=== PATIENT | male | born 1960 | race Caucasian/White ===

== ENCOUNTER 2017-01-30 13:30 | Inpatient (IN) | payer OTHER ==
[~2017-01-30] VITALS: Ht 193 cm; Wt 152.0 kg
[2017-02-01] MEDS ORDERED: ZANT150T2 PO (11:26)
[2017-02-01] MEDS ORDERED: LISI40TA PO (11:26)
[2017-02-01] MEDS ORDERED: AMLO5TAB2 PO (11:26)
[2017-02-01] MEDS ORDERED: FERR325C PO (11:26)
[2017-02-01] MEDS ORDERED: ASPI325T PO (11:26)
[2017-02-02] MEDS ORDERED: LACTATED RINGER'S 1000 ML IV PRN (10:45)
[2017-02-02] MEDS ORDERED: POVIDONE IODINE 5% (ANTISEPSIS KIT) 4 APPLICATIONS EACH NARE PRN (10:45)
[2017-02-02] MEDS ORDERED: INSULIN HUMAN REGULAR 1,000 UNITS/10 ML VIAL SQ PRN (10:45)
[2017-02-02] MEDS ORDERED: METOPROLOL TARTRATE 25 MG TAB PO PRN (10:45)
[2017-02-02] MEDS ORDERED: SODIUM CHLORID 0.9% 500 ML IV PRN (10:45)
[2017-02-02] MEDS ORDERED: CHLORHEXIDINE GLUCONATE 2 % 1 PACK (2 CLOTHS) TOPICAL PRN (10:45)
[2017-02-02] MEDS ORDERED: ceFAZolin 2 GM PREMIX 50 ML IV ONE (11:00)
[2017-02-02] MEDS ORDERED: DEXT 5%-NACL 0.9% 1000 ML INJ 1,000 ML IV SCH (11:00)
[2017-02-02] MEDS ORDERED: METRONIDAZOLE 500 MG/100 ML ISONTONIC SOLN IV ONE (11:00)
[2017-02-02] MEDS ORDERED: GLYCOPYRROLATE 0.2 MG/ML VIAL IV ONE (12:00)
[2017-02-02] MEDS ORDERED: PHENYLEPH/NS 1000 MCG/10 ML SYR IV ONE (12:00)
[2017-02-02] MEDS ORDERED: LACTATED RINGER'S 1000 ML INJ 2,000 ML IV ONE (12:00)
[2017-02-02] MEDS ORDERED: ePHEDrine/NS 25 MG/5 ML SYR IV ONE (12:00)
[2017-02-02] MEDS ORDERED: ROCURONIUM INJ 50 MG/5 ML SYRINGE IV PUSH ONE (12:00)
[2017-02-02] MEDS ORDERED: LIDOCAINE HCL 1% PF 5 ML AMPULE OTHER ONE (12:00)
[2017-02-02] MEDS ORDERED: NS 500 ML (EXCEL BAG) INJ 500 ML IV ONE (12:00)
[2017-02-02] MEDS ORDERED: ONDANSETRON HCL 4 MG/2 ML VIAL IV PUSH ONE (12:00)
[2017-02-02] MEDS ORDERED: DEXAMETHASONE SOD PHOS 4 MG/ML VIAL IV ONE (12:00)
[2017-02-02] MEDS ORDERED: NORMOSOL R INJ 3,000 ML IV ONE (12:00)
[2017-02-02] MEDS ORDERED: MIDAZOLAM HCL 2 MG/2 ML VIAL IV ONE (12:00)
[2017-02-02] MEDS ORDERED: SUCCINYLCHOLINE CHLORIDE 100 MG/5 ML SYRINGE IV PUSH ONE (12:00)
[2017-02-02] MEDS ORDERED: ARTIFICIAL TEARS OPTH OINT 3.5 APPLIC/3.5 GM TUBO EACH EYE ONE (12:00)
[2017-02-02] MEDS ORDERED: VECURONIUM BROMIDE 20 MG VIAL IV ONE (12:00)
[2017-02-02] MEDS ORDERED: PROPOFOL 200 MG/20 ML AMP IV ONE (12:00)
--- NOTE | 2017-02-02 13:36 | EKG ---
Date Performed: 02/02/2017 Time Performed: 10:53:37 PTAGE: 56 years EKG: Sinus rhythm INFERIOR MYOCARDIAL INFARCTION , PROBABLY OLD ABNORMAL ECG NO PREVIOUS TRACING DOCTOR: Frank Murray Interpretating Date/Time 02/02/2017 13:35:35
[2017-02-02] MEDS ORDERED: ACETAMINOPHEN 1000 MG/100 ML 100 ML IV ONE (19:47)
[2017-02-02] MEDS ORDERED: ceFAZolin INJ 1,000 MG VIAL ONE (19:58)
[2017-02-02 21:38] LABS: BLOOD GAS BASE EXCESS -0.1 mmol/L (-2-2); BLOOD GAS CARBOXYHEMOGLOBIN 2.3 % (0-4); BLOOD GAS HCO3 24 mmol/L (22-26); BLOOD GAS METHEMOGLOBIN 1.2 % (0-2); BLOOD GAS O2 HGB SATURATION 96 % (90-100); BLOOD GAS OXYGEN CONTENT 16.3 Vol % (12.0-20.0); BLOOD GAS PCO2 40 mmHg (38-42); BLOOD GAS PO2 180 mmHg (61-120); BLOOD GAS TOTAL HGB 11.8 G/DL (12.0-16.0); CRITICAL VALUE NO; TEMP CORR TO 98.6
[2017-02-02 21:39] LABS: OXYGEN DEVICE OR
[2017-02-02] MEDS ORDERED: SUGAMMADEX SODIUM 200 MG/2 ML VIAL IV PUSH ONE ×2 (23:04)
[2017-02-03] VITALS (15 sets, daily range): BP systolic 101–147; BP diastolic 63–82; PULSE 67–90; RESP 16–17; TEMP 98.4–98.5; O2SAT 95–99
[2017-02-03 02:30] LABS: BLOOD GAS BASE EXCESS -0.9 mmol/L (-2-2); BLOOD GAS CARBOXYHEMOGLOBIN 1.8 % (0-4); BLOOD GAS HCO3 24 mmol/L (22-26); BLOOD GAS METHEMOGLOBIN 1.1 % (0-2); BLOOD GAS O2 HGB SATURATION 91 % (90-100); BLOOD GAS OXYGEN CONTENT 18.7 Vol % (12.0-20.0); BLOOD GAS PCO2 46 mmHg (38-42); BLOOD GAS PO2 78 mmHg (61-120); BLOOD GAS TOTAL HGB 14.6 G/DL (12.0-16.0); CRITICAL VALUE NO; TEMP CORR TO 98.6
[2017-02-03] MEDS ORDERED: ENALAPRILAT 2.5 MG/2 ML VIAL IV PRN (02:30)
[2017-02-03] MEDS ORDERED: ACETAMINOPHEN 325 MG TAB PO PRN (02:30)
[2017-02-03] MEDS: KETOROLAC TROMETHAMINE 30 MG/ML (IVP) VIAL IVP SCH ×4 (02:30→20:44)
[2017-02-03] MEDS ORDERED: ENALAPRILAT 1.25 MG/ML VIAL IV PRN (02:30)
[2017-02-03] MEDS ORDERED: POTASSIUM CHLOR 20 MEQ PREMIX 100 ML IV PRN (02:30)
[2017-02-03] MEDS: D5-NS + KCL 20 MEQ INJ 1,000 ML IV SCH ×4 (02:30→23:19)
[2017-02-03] MEDS ORDERED: NALOXONE HCL 0.4 MG/ML AMP IV PRN (02:30)
[2017-02-03] MEDS ORDERED: MORPHINE SULFATE 30 MG/30 ML PCA IV SCH (02:30)
[2017-02-03] MEDS: SODIUM CHLORIDE 0.9% FLUSH 5 ML FLUSH IVF SCH ×3 (02:30→20:44)
[2017-02-03] MEDS ORDERED: diphenhydrAMINE HCL 50 MG/ML VIAL IV PRN (02:30)
[2017-02-03] MEDS ORDERED: Post-op Orders (for Pharmacy) MISC XX ONE (02:30)
[2017-02-03] MEDS ORDERED: SODIUM CHLORIDE 0.9% FLUSH 5 ML FLUSH IVF PRN (02:30)
[2017-02-03] MEDS ORDERED: POTASSIUM CHLOR 40 MEQ PREMIX 100 ML IV PRN (02:30)
[2017-02-03 02:32] LABS: DRAW SITE ART LINE; FIO2 100 %; OXYGEN DEVICE OR; STAT YES
[2017-02-03] MEDS: metroNIDAZOLE 500 MG INJ 100 ML IV SCH ×3 (03:00→19:53)
[2017-02-03] MEDS ORDERED: PROPOFOL 1000 MG/100 ML INJ 100 ML ONE (03:04)
[2017-02-03] MEDS ORDERED: PHENYLEPHRINE HCL 10 MG/ML VIAL ONE (03:04)
[2017-02-03] MEDS ORDERED: PROPOFOL 1000 MG/100 ML IV PRN (03:30)
[2017-02-03] MEDS ORDERED: MORPHINE SULFATE 4 MG/ML INJ IV PRN (03:30)
[2017-02-03 03:37] LABS: AUTOMATED NEUTROPHIL # 15.5 TH/MM3 (1.8-7.7); BASOPHIL % 0.1 % (0.0-2.0); EOSINOPHIL % 0.1 % (0.0-4.0); HEMATOCRIT 44.2 % (39.0-51.0); LYMPH % 4.1 % (9.0-44.0); LYMPHOCYTE # 0.7 TH/MM3 (1.0-4.8); MEAN CELL VOLUME 84.3 FL (80.0-100.0); MEAN CORPUSCULAR HEMOGLOBIN 27.3 PG (27.0-34.0); MEAN CORPUSCULAR HGB CONC 32.3 % (32.0-36.0); MONO % 2.8 % (0.0-8.0); NEUT % 92.9 % (16.0-70.0); PLATELET COUNT 235 TH/MM3 (150-450); RED BLOOD COUNT 5.24 MIL/MM3 (4.50-5.90); WHITE BLOOD COUNT 16.6 TH/MM3 (4.0-11.0)
[2017-02-03 03:41] LABS: HEMO FLAGS AUTO DIFF
[2017-02-03] MEDS ORDERED: TERBUTALINE INJ 1 MG/ML AMP SQ PRN (03:45)
[2017-02-03] MEDS ORDERED: PHENYLEPHRINE 40 MG in D5W 500 ML IV PRN (03:45)
[2017-02-03 03:56] LABS: POTASSIUM 3.7 MEQ/L (3.5-5.1)
[2017-02-03 03:58] LABS: BLOOD GAS BASE EXCESS -1.5 mmol/L (-2-2); BLOOD GAS CARBOXYHEMOGLOBIN 1.5 % (0-4); BLOOD GAS HCO3 24 mmol/L (22-26); BLOOD GAS METHEMOGLOBIN 1.2 % (0-2); BLOOD GAS O2 HGB SATURATION 87 % (90-100); BLOOD GAS OXYGEN CONTENT 18.2 Vol % (12.0-20.0); BLOOD GAS PCO2 50 mmHg (38-42); BLOOD GAS PO2 64 mmHg (61-120); BLOOD GAS TOTAL HGB 14.9 G/DL (12.0-16.0); TEMP CORR TO 98.6
[2017-02-03 04:00] LABS: CRITICAL VALUE YES
[2017-02-03 04:07] LABS: DRAW SITE ART LINE; FIO2 100 %; OXYGEN DEVICE VENTILATOR; STAT YES
--- NOTE | 2017-02-03 04:13 | RADRPT ---
EXAM DATE/TIME: 02/03/2017 03:18 [facility] COMPARISON: No previous studies available for comparison. INDICATIONS : Low oxygen SATS MEDICAL HISTORY : None. SURGICAL HISTORY : None. ENCOUNTER: Initial ACUITY: 1 day PAIN SCORE: Non-responsive. LOCATION: Bilateral chest FINDINGS: A single view of the chest demonstrates patchy bilateral airspace disease most prominent in the perih ilar and left basilar distribution. Heart size is borderline prominent. Osseous structures are intact . Endotracheal tube with the tip appropriately positioned above the vira. CONCLUSION: 1. Patchy bilateral air space disease, most prominent in the perihilar and medial basilar distributio n. 2. Endotracheal tube appropriately positioned at the vira. 3. Borderline prominent but well compensated heart. Myron Price MD on February 03, 2017 at 4:10 Board Certified Radiologist. This report was verified electronically.
[2017-02-03 04:35] LABS: BANDS 7 % (0-6); NEUTROPHIL # MANUAL DIFF 15.8 TH/MM3 (1.8-7.7); POLYS (SEG NEUTROPHILS) 88 % (16-70); WBC DIFF SAMPLE 100
[2017-02-03 04:36] LABS: OVALOCYTES 1+ (NORMAL); PLATELET ESTIMATE SMEAR NORMAL (NORMAL); PLATELET MORPHOLOGY NORMAL (NORMAL); SCAN/DIFF FINAL DIFF MANUAL
[2017-02-03] MEDS ORDERED: fentaNYL DRIP 250 ML IV PRN (05:15)
[2017-02-03] MEDS ORDERED: MISCELLANEOUS NURSING INFORMATION XX SCH (05:15)
[2017-02-03] MEDS ORDERED: SENNOSIDES 8.6 MG TAB PO PRN (05:15)
[2017-02-03] MEDS ORDERED: BISACODYL 10 MG SUPP RECTAL PRN (05:15)
[2017-02-03] MEDS ORDERED: LACTULOSE SYRUP 20 GM/30 ML CUP PO PRN (05:15)
[2017-02-03] MEDS ORDERED: RESP: ALBUTEROL 2.5 MG/3 ML NEB (PRN) INH (05:15)
[2017-02-03] MEDS ORDERED: ONDANSETRON HCL 4 MG/2 ML VIAL IV PUSH PRN (05:15)
[2017-02-03] MEDS ORDERED: MAGNESIUM HYDROXIDE SUSP 30 ML CUP PO PRN (05:15)
[2017-02-03] MEDS ORDERED: SODIUM CHLORIDE 0.9% FLUSH 10 ML FLUSH IV FLUSH PRN (05:15)
[2017-02-03] MEDS ORDERED: CHLORHEXIDINE GLUCONATE 2 % 1 PACK (2 CLOTHS) TOP PRN (05:15)
--- NOTE | 2017-02-03 05:38 | PD.CONS ---
[facility] Service Critical Care Medicine Consult Requested By Dr. Goss Reason for Consult Postoperative respiratory failure/ventilator management Primary Care Physician Non-Staff History of Present Illness 48-year-old male. Date of admission 02/02/2017. Date of consultation 02/03/2017. Past meclizine includes elevated BMI, anemia, hypertension, ongoing tobaccoism/alcohol use and gastroesophageal reflux disease. Patient is currently orotracheally intubated and no family is available. Information was obtained by reviewing paper chart. Patient is a known history of daily alcohol use and tobacco use. On 01/29, patient had a possible colonoscopy which revealed superficial lung mass FEN at the cecum with multiple biopsies, 2 sessile polyps in the transverse colon and sigmoid colon/polypectomy into colon. In the Descending Colon and Sigmoid Colon. Mild Diverticulosis. Grade 1 Internal Hemorrhoids. These Revealed Tubular Villous Adenoma the Cecum, Tubular Adenoma the Descending Colon with Hyperplastic Polyp. EGD revealed\ hyperplastic squamous mucosa and esophagus with Gastrografin and full inflammation. H. pylori negative. Patient presented to Dr. Goss for minimally invasive robot-assisted ascending colectomy with possible conversion to open surgery if needed. 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 Received 5 L crystalloid. EBL 200 cc. 300 cc urine output. Patient required Rohit-Synephrine drip throughout the case. Unable to be extubated postoperatively remained hypoxic. We are asked to evaluate post procedure. Review of Systems ROS Limitations: Intubated Past Family Social History Allergies: Coded Allergies: No Known Allergies (Unverified , 02/02/17) Past Medical History Tubulovillous adenoma the cecum Internal hemorrhoids Hypertension Elevated BMI Tobaccoism EtOH Gastroesophageal reflux disease Morbid obesity Anemia Diverticulosis Past Surgical History Left total knee arthroplasty Per chart anal surgery however patient denied anesthesia. Reported Medications Iron sulfate 325 mg by mouth 3 times a day Ranitidine 150 mg by mouth twice a day Amlodipine 5 mg by mouth daily Lisinopril 40 mg by mouth daily Aspirin 325 mg by mouth daily Active Ordered Medications Reviewed in EMR Family History Unknown. No records available. Patient currently intubated. No family available Social History 3-4 drinks daily. One pack per day tobacco. No IV drug use. Physical Exam Vital Signs Vital Signs Date Time Temp Pulse Resp B/P (MAP) Pulse Ox O2 Delivery O2 Flow Rate FiO2 02/03/17 05:22 80 90/50 02/03/17 04:51 96 100 02/03/17 04:30 82 14 126/65 (85) 96 Mechanical Ventilator 100 02/03/17 04:15 81 14 125/64 (84) 96 Mechanical Ventilator 100 02/03/17 04:00 82 17 135/67 (89) 94 Mechanical Ventilator 100 02/03/17 03:45 85 20 91/48 (62) 93 Mechanical Ventilator 100 02/03/17 03:30 87 21 108/53 (71) 92 Mechanical Ventilator 100 02/03/17 03:15 84 12 96/51 (66) 91 Mechanical Ventilator 100 02/03/17 03:04 80 90/50 02/03/17 03:00 100 02/03/17 03:00 98.0 84 12 90/50 (63) 90 Mechanical Ventilator 100 02/02/17 15:00 81 16 134/76 (95) 97 02/02/17 10:27 98.9 86 18 154/97 (116) 97 Physical Exam GENERAL: This is a 48-year-old male, critically ill currently orotracheally intubated. SKIN: Warm and dry. Chronic venous stasis bilateral lower extremities HEAD: Atraumatic. Normocephalic. EYES: Pupils equal and round around 2 mm bilaterally and reactive. No scleral icterus. No injection or drainage. ENT: No nasal bleeding or discharge. Mucous membranes pink and moist. NG tube in right nares NECK: Trachea midline. No JVD. Obese. CARDIOVASCULAR: Regular rate and rhythm. S1, S2. No S4. No murmur RESPIRATORY: Diminished breath sounds throughout. No wheezing or rhonchi appreciated. GASTROINTESTINAL: Abdomen obese. Nontender. Trochars to the right lower quadrant 1 right of umbilicus. Steri-Strips over suprapubic incision site with some bloody drainage covered with foam tape MUSCULOSKELETAL: Extremities with trace pitting edema bilateral lower x-rays with chronic venous stasis NEUROLOGICAL: Cranial nerves II through XII grossly intact. Strength evaluated by movement in all 4 extremities spontaneously to stimulation. Positive gag. Positive corneal reflex Laboratory Laboratory Tests Test 02/02/17 21:10 02/03/17 02:10 02/03/17 03:16 02/03/17 03:25 Blood Gas Puncture Site DRAWN IN OR ART LINE ART LINE Blood Gas Patient Temperature 98.6 98.6 98.6 Blood Gas HCO3 24 24 24 Blood Gas Base Excess -0.1 -0.9 -1.5 Blood Gas Oxygen Saturation 96 91 87 Arterial Blood pH 7.40 7.34 7.30 Arterial Blood Partial Pressure CO2 40 46 50 Arterial Blood Partial Pressure O2 180 78 64 Arterial Blood Oxygen Content 16.3 18.7 18.2 Arterial Blood Carboxyhemoglobin 2.3 1.8 1.5 Arterial Blood Methemoglobin 1.2 1.1 1.2 Blood Gas Hemoglobin 11.8 14.6 14.9 Oxygen Delivery Device OR OR VENTILATOR Blood Gas Inspired Oxygen 100 100 White Blood Count 16.6 Red Blood Count 5.24 Hemoglobin 14.3 Hematocrit 44.2 Mean Corpuscular Volume 84.3 Mean Corpuscular Hemoglobin 27.3 Mean Corpuscular Hemoglobin Concent 32.3 Red Cell Distribution Width 21.0 Platelet Count 235 Mean Platelet Volume 8.4 Neutrophils (%) (Auto) 92.9 Lymphocytes (%) (Auto) 4.1 Monocytes (%) (Auto) 2.8 Eosinophils (%) (Auto) 0.1 Basophils (%) (Auto) 0.1 Neutrophils # (Auto) 15.5 Lymphocytes # (Auto) 0.7 Monocytes # (Auto) 0.5 Eosinophils # (Auto) 0.0 Basophils # (Auto) 0.0 CBC Comment AUTO DIFF Differential Total Cells Counted 100 Neutrophils % (Manual) 88 Band Neutrophils % 7 Lymphocytes % 4 Monocytes % 1 Neutrophils # (Manual) 15.8 Differential Comment FINAL DIFF MANUAL Platelet Estimate NORMAL Platelet Morphology Comment NORMAL Ovalocytes 1+ Blood Urea Nitrogen 14 Creatinine 1.32 Random Glucose 182 Calcium Level 7.5 Sodium Level 139 Potassium Level 3.7 Chloride Level 103 Carbon Dioxide Level 27.0 Anion Gap 9 Estimat Glomerular Filtration Rate 56 Test 02/03/17 04:53 Result Diagram: 02/03/17 0316 02/03/17 0316 Imaging Last Impressions Chest X-Ray 02/03/17 0000 Signed Impressions: Service Date/Time: Friday, February 03, 2017 03:18 - CONCLUSION: 1. Patchy bilateral air space disease, most prominent in the perihilar and medial basilar distribution. 2. Endotracheal tube appropriately positioned at the vira. 3. Borderline prominent but well compensated heart. Myron Price MD Assessment and Plan Assessment and Plan Neuro/Psych: EtOH Thiamine, folate and multivitamin daily 3 days. Monitor for DTs Currently on propofol/fentanyl drips for sedation/analgesia while intubated Goal of RA SS -2 Daily sedation vacation Morphine CORPORATE ADMINISTRATIVE ASSISTANT/Caruthers written per colon surgery prior to knowledge patient remained intubated postop. Likely can discontinue until clinically indicated CV: Hypotension possibly sedation induced History of hypertension Will hold lisinopril 40 mg by mouth daily and amlodipine 5 mg by mouth daily for hypertension light of hypotension Currently on low-dose Rohit-Synephrine at 40 mg per minute. Likely can wean off. Currently on D5 normal saline with 20 mEq KCl 150 cc an hour Resp: Postoperative respiratory failure Ongoing tobaccoism [facility] 16/650/1.2/ Ventilator bundle Albuterol/ipratropium aerosols every 4 hours with albuterol aerosols every 2 hours. 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 Right NG tube LIWS Pantoprazole for GI prophylaxis : Dewitt catheter for accurate I's and O's in a critically ill patient Endo: Hyperglycemia Sliding-scale insulin to maintain euglycemia per colorectal surgery Renal: Elevated creatinine Unknown baseline. No prior laboratories. Avoid nephrotoxic drugs Heme: Leukocytosis Monitor CBC daily. Follow trends. ID: Postoperative antibiotics with cefazolin and metronidazole per colorectal surgery. FEN: Replace electrolytes as clinically indicated per ICU electrolyte protocol MSK: Access- right radial arterial line placed in OR. Peripheral IVs. The central line if indicated Prophylaxis - GI - famotidine - DVT - SCD/pharmacological prophylaxis heparin sq Critical care time 30 minutes Code Status Full code Discussed Condition With [employer]. Care plan discussed and all questions answered. No family available. Julio Cesar Freeman MD Feb 03, 2017 05:38
[2017-02-03] MEDS ORDERED: PCA - TOTAL MG MORPHINE DELIVERED PER SHIFT SCH (06:00)
[2017-02-03] MEDS: PROPOFOL 1000 MG/100 ML INJ 100 ML IV PRN ×3 (06:09→20:45)
[2017-02-03 06:33] LABS: BLOOD GAS BASE EXCESS 1.9 mmol/L (-2-2); BLOOD GAS HCO3 27 mmol/L (22-26); BLOOD GAS O2 HGB SATURATION 91 % (90-100); BLOOD GAS OXYGEN CONTENT 18.9 Vol % (12.0-20.0); BLOOD GAS PCO2 46 mmHg (38-42); BLOOD GAS PO2 70 mmHg (61-120); BLOOD GAS TOTAL HGB 14.7 G/DL (12.0-16.0); CRITICAL VALUE NO; OXYGEN DEVICE VENTILATOR; TEMP CORR TO 98.6
[2017-02-03 06:34] LABS: DRAW SITE ART LINE; FIO2 100 %; STAT NO; VENT SETTINGS PRVC /AC /
[2017-02-03] MEDS: CHLORHEXIDINE 0.12% (ORAL KIT) 15 ML CUP MT SCH ×2 (08:00→19:55)
[2017-02-03] MEDS: RESP: ALBUTEROL 2.5 MG/IPRATROPIUM 0.5 MG NEB (SCH) INH ×4 (08:41→19:48)
[2017-02-03] MEDS: ARTIFICIAL TEARS OPTH SOLN 15 ML BTL EACH EYE SCH ×2 (09:00→19:56)
[2017-02-03] MEDS ORDERED: amLODIPine BESYLATE 5 MG TAB PO SCH (09:00)
[2017-02-03] MEDS ORDERED: SODIUM CHLORIDE 0.9% FLUSH 10 ML FLUSH IV FLUSH SCH (09:00)
[2017-02-03] MEDS ORDERED: PANTOPRAZOLE SODIUM 40 MG VIAL IV PUSH SCH (09:00)
[2017-02-03] MEDS ORDERED: LISINOPRIL 20 MG TAB PO SCH (09:00)
[2017-02-03] MEDS: FOLIC ACID 1 MG TAB PO SCH (09:57)
[2017-02-03] MEDS: MULTIVITAMIN TAB PO SCH (09:57)
[2017-02-03] MEDS: DOCUSATE SODIUM 50 MG/SENNA 8.6 MG TAB PO SCH ×2 (09:57→20:45)
[2017-02-03] MEDS: PANTOPRAZOLE SODIUM 40 MG VIAL IVP SCH (09:58)
[2017-02-03] MEDS: THIAMINE INJ 100 MG in SODIUM CHLORIDE 0.9% INJ 100 ML IV SCH (09:58)
[2017-02-03 11:03] LABS: BLOOD GAS BASE EXCESS 0.1 mmol/L (-2-2); BLOOD GAS CARBOXYHEMOGLOBIN 0.9 % (0-4); BLOOD GAS HCO3 25 mmol/L (22-26); BLOOD GAS METHEMOGLOBIN 0.9 % (0-2); BLOOD GAS O2 HGB SATURATION 92 % (90-100); BLOOD GAS OXYGEN CONTENT 18.4 Vol % (12.0-20.0); BLOOD GAS PCO2 42 mmHg (38-42); BLOOD GAS PO2 70 mmHg (61-120); BLOOD GAS TOTAL HGB 14.2 G/DL (12.0-16.0); CRITICAL VALUE NO; OXYGEN DEVICE VENTILATOR; TEMP CORR TO 98.6
[2017-02-03 11:06] LABS: DRAW SITE ART LINE; FIO2 80 %; STAT NO; VENT SETTINGS PRVC/AC
[2017-02-03] MEDS: RESP: BUDESONIDE 0.5 MG/2 ML NEB NEB SCH ×2 (11:23→19:48)
--- NOTE | 2017-02-03 11:41 | HHI.CCPN ---
Subjective Remarks/Hospital Course 48-year-old male. Date of admission 02/02/2017. Date of consultation 02/03/2017. Past meclizine includes elevated BMI, anemia, hypertension, ongoing tobaccoism/alcohol use and gastroesophageal reflux disease. Patient is currently orotracheally intubated and no family is available. Information was obtained by reviewing paper chart. Patient is a known history of daily alcohol use and tobacco use. On 01/29, patient had a possible colonoscopy which revealed superficial lung mass FEN at the cecum with multiple biopsies, 2 sessile polyps in the transverse colon and sigmoid colon/polypectomy into colon. In the Descending Colon and Sigmoid Colon. Mild Diverticulosis. Grade 1 Internal Hemorrhoids. These Revealed Tubular Villous Adenoma the Cecum, Tubular Adenoma the Descending Colon with Hyperplastic Polyp. EGD revealed\ hyperplastic squamous mucosa and esophagus with Gastrografin and full inflammation. H. pylori negative. Patient presented to Dr. Goss for minimally invasive robot-assisted ascending colectomy with possible conversion to open surgery if needed. 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 Received 5 L crystalloid. EBL 200 cc. 300 cc urine output. Patient required Rohit-Synephrine drip throughout the case. Unable to be extubated postoperatively remained hypoxic. We are asked to evaluate post procedure. 02/03: Oxygen diffusion much impaired - may simply be shunting through dense infiltrates. Urine cloudy, send UA. Well perfused. Objective Vital Signs Date Time Temp Pulse Resp B/P (MAP) Pulse Ox O2 Delivery O2 Flow Rate FiO2 02/03/17 08:41 95 80 02/03/17 06:00 84 02/03/17 05:22 90/50 02/03/17 04:30 14 Mechanical Ventilator 02/03/17 03:00 98.0 Intake and Output 02/03/17 02/03/17 02/04/17 08:00 16:00 00:00 Intake Total 5544 ml Output Total 750 ml Balance 4794 ml Result Diagram: 02/03/176 02/03/176 Other Results Laboratory Tests Test 02/02/17 21:10 02/03/17 02:10 02/03/17 03:25 02/03/17 04:53 Blood Gas Puncture Site DRAWN IN OR ART LINE ART LINE ART LINE Blood Gas Patient Temperature 98.6 98.6 98.6 98.6 Blood Gas HCO3 24 mmol/L (22-26) 24 mmol/L (22-26) 24 mmol/L (22-26) 27 mmol/L (22-26) Blood Gas Base Excess -0.1 mmol/L (-2-2) -0.9 mmol/L (-2-2) -1.5 mmol/L (-2-2) 1.9 mmol/L (-2-2) Blood Gas Oxygen Saturation 96 % (90-100) 91 % (90-100) 87 % (90-100) 91 % ( 90-100) Arterial Blood pH 7.40 (7.380-7.420) 7.34 (7.380-7.420) 7.30 (7.380-7.420) 7.38 (7.380-7.420) Arterial Blood Partial Pressure CO2 40 mmHg (38-42) 46 mmHg (38-42) 50 mmHg (38-42) 46 mmHg (38-42) Arterial Blood Partial Pressure O2 180 mmHg (61-120) 78 mmHg (61-120) 64 mmHg (61-120) 70 mmHg (61-120) Arterial Blood Oxygen Content 16.3 Vol % (12.0-20.0) 18.7 Vol % (12.0-20.0) 18.2 Vol % (12.0-20.0) 18.9 Vol % (12.0-20.0) Arterial Blood Carboxyhemoglobin 2.3 % (0-4) 1.8 % (0-4) 1.5 % (0-4) 1.0 % (0-4) Arterial Blood Methemoglobin 1.2 % (0-2) 1.1 % (0-2) 1.2 % (0-2) 1.0 % (0-2) Blood Gas Hemoglobin 11.8 G/DL (12.0-16.0) 14.6 G/DL (12.0-16.0) 14.9 G/DL (12.0-16.0) 14.7 G/DL (12.0-16.0) Oxygen Delivery Device OR OR VENTILATOR VENTILATOR Blood Gas Inspired Oxygen 100 % 100 % 100 % Blood Gas Ventilator Setting [facility] /AC / Test 02/03/17 10:47 Blood Gas Puncture Site ART LINE Blood Gas Patient Temperature 98.6 Blood Gas HCO3 25 mmol/L (22-26) Blood Gas Base Excess 0.1 mmol/L (-2-2) Blood Gas Oxygen Saturation 92 % (90-100) Arterial Blood pH 7.38 (7.380-7.420) Arterial Blood Partial Pressure CO2 42 mmHg (38-42) Arterial Blood Partial Pressure O2 70 mmHg (61-120) Arterial Blood Oxygen Content 18.4 Vol % (12.0-20.0) Arterial Blood Carboxyhemoglobin 0.9 % (0-4) Arterial Blood Methemoglobin 0.9 % (0-2) Blood Gas Hemoglobin 14.2 G/DL (12.0-16.0) Oxygen Delivery Device VENTILATOR Blood Gas Ventilator Setting [facility]/AC Blood Gas Inspired Oxygen 80 % Imaging Last Impressions Chest X-Ray 02/03/17 0000 Signed Impressions: Service Date/Time: Sunday, February 03, 2017 03:18 - CONCLUSION: 1. Patchy bilateral air space disease, most prominent in the perihilar and medial basilar distribution. 2. Endotracheal tube appropriately positioned at the vira. 3. Borderline prominent but well compensated heart. Myron Price MD Objective Remarks GENERAL: This is a 48-year-old male, critically ill currently orotracheally intubated. SKIN: Warm and dry. Chronic venous stasis bilateral lower extremities HEAD: Atraumatic. Normocephalic. EYES: Pupils equal and round around 2 mm bilaterally and reactive. No scleral icterus. No injection or drainage. ENT: No nasal bleeding or discharge. Mucous membranes pink and moist. NG tube in right nares NECK: Trachea midline. Orally intubated. CARDIOVASCULAR: Regular rate and rhythm. S1, S2. No S4. No murmur, no JVD. RESPIRATORY: Diminished breath sounds throughout. No wheezing or rhonchi appreciated. Good juan m air movement. GASTROINTESTINAL: Abdomen obese. Nontender. Trochar sites to the right lower quadrant 1 right of umbilicus. MUSCULOSKELETAL: Extremities with trace pitting edema bilateral lower x-rays with chronic venous stasis NEUROLOGICAL: Cranial nerves II through XII grossly intact. Strength evaluated by movement in all 4 extremities spontaneously to stimulation. Positive gag. A/P Assessment and Plan Neuro/Psych: EtOH Thiamine, folate and multivitamin daily 3 days. Monitor for DTs Currently on propofol/fentanyl drips for sedation/analgesia while intubated Goal of RA SS -2 Daily sedation vacation Morphine METAL RECLAMATION KETTLE TENDER/[place] written per colon surgery prior to knowledge patient remained intubated postop. Likely can discontinue until clinically indicated CV: Hypotension possibly sedation induced History of hypertension Will hold lisinopril 40 mg by mouth daily and amlodipine 5 mg by mouth daily for hypertension light of hypotension Currently on low-dose Rohit-Synephrine at 40 mg per minute. Likely can wean off. Currently on D5 normal saline with 20 mEq KCl 150 cc an hour Resp: Postoperative respiratory failure Ongoing tobaccoism [facility] [address]/1.2/ Ventilator bundle Albuterol/ipratropium aerosols every 4 hours with albuterol aerosols every 2 hours. 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 Right NG tube LIWS Pantoprazole for GI prophylaxis : Dewitt catheter for accurate I's and O's in a critically ill patient Endo: Hyperglycemia Sliding-scale insulin to maintain euglycemia per colorectal surgery Renal: Elevated creatinine Unknown baseline. No prior laboratories. Avoid nephrotoxic drugs Heme: Leukocytosis Monitor CBC daily. Follow trends. ID: Postoperative antibiotics with cefazolin and metronidazole per colorectal surgery. FEN: Replace electrolytes as clinically indicated per ICU electrolyte protocol MSK: Access- right radial arterial line placed in OR. Peripheral IVs. The central line if indicated Prophylaxis - GI - famotidine - DVT - SCD/pharmacological prophylaxis heparin sq Overall impression: Remains critically ill. Appears to have an element of chronic heart failure and deep venous insufficiency. Areas of consolidation on CXR will probably re-expand nicely on ventilator. Watch carefully. Critical Care 48 mins Joselito Diaz MD Feb 03, 2017 11:41
--- NOTE | 2017-02-03 11:54 | HHI.PR ---
Subjective Remarks Pt more awake. Remains on vent. Appreciate critical care help. Objective Vital Signs Date Time Temp Pulse Resp B/P (MAP) Pulse Ox O2 Delivery O2 Flow Rate FiO2 02/03/17 08:41 95 80 02/03/17 06:00 84 02/03/17 05:22 80 90/50 02/03/17 04:51 96 100 02/03/17 04:37 100 02/03/17 04:30 82 14 126/65 (85) 96 Mechanical Ventilator 100 02/03/17 04:15 81 14 125/64 (84) 96 Mechanical Ventilator 100 02/03/17 04:00 82 17 135/67 (89) 94 Mechanical Ventilator 100 02/03/17 03:59 100 02/03/17 03:45 85 20 91/48 (62) 93 Mechanical Ventilator 100 02/03/17 03:30 87 21 108/53 (71) 92 Mechanical Ventilator 100 02/03/17 03:15 84 12 96/51 (66) 91 Mechanical Ventilator 100 02/03/17 03:04 80 90/50 02/03/17 03:00 100 02/03/17 03:00 98.0 84 12 90/50 (63) 90 Mechanical Ventilator 100 02/02/17 15:00 81 16 134/76 (95) 97 I/O 02/02/17 02/02/17 02/02/17 02/03/17 02/03/17 02/03/17 07:00 15:00 23:00 07:00 15:00 23:00 Intake Total 5544 ml Output Total 750 ml Balance 4794 ml Intake IV Total 5544 ml Output Urine Total 450 ml Gastric Drainage Total 100 ml Estimated Blood Loss 200 ml # Voids 1 Result Diagram: 02/03/1731502/03/17315 Objective Remarks VS-S Abd: obese,soft,non distended. Better urine output. Assessment and Plan Assessment and Plan POD#1. Remains on vent Continue IVs, Wean vent. Sean Meza MD Feb 03, 2017 11:54
[2017-02-03] MEDS ORDERED: STERILE WATER FOR INJECTION 20 ML VIAL IV ONE (12:00)
[2017-02-03] MEDS ORDERED: LACTATED RINGER'S 1000 ML INJ 1,000 ML IV ONE (12:00)
[2017-02-03] MEDS ORDERED: PROPOFOL 200 MG/20 ML AMP IV ONE (12:00)
--- NOTE | 2017-02-03 12:33 | ECHRPT ---
Indication: EF in assessment of CHF CONCLUSIONS Normal left ventricular size. Mild concentric left ventricular hypertrophy. The left ventricular systolic function is grossly normal on limited imaging. The interatrial septum not well visualized. Trace mitral valve regurgitation. The aortic valve is not well visualized. No aortic valve stenosis. There is trace tricuspid valve regurgitation. The pulmonary valve is not well visualized. The inferior vena cava was not well visualized. BP: 90 / 50 HR: Rhythm: Sinus MEASUREMENTS (Male / Female) Normal Values Technical Quality:Poor 2D ECHO LV Diastolic Diameter PLAX 5.2 cm 4.2 - 5.9 / 3.9 - 5.3 cm LV Systolic Diameter PLAX 3.3 cm IVS Diastolic Thickness 1.1 cm 0.6 - 1.0 / 0.6 - 0.9 cm LVPW Diastolic Thickness 1.1 cm 0.6 - 1.0 / 0.6 - 0.9 cm LV Relative Wall Thickness 0.4 LVOT Diameter 2.0 cm Aortic Root Diameter 3.1 cm LA Systolic Diameter LX 3.3 cm 3.0 - 4.0 / 2.7 - 3.8 cm M-MODE AV Cusp Separation MM 2.0 cm DOPPLER AV Peak Velocity 225.0 cm/s AV Peak Gradient 20.3 mmHg AV Mean Gradient 8.0 mmHg AV Velocity Time Integral 32.5 cm LVOT Peak Velocity 156.0 cm/s LVOT Peak Gradient 9.7 mmHg LVOT Velocity Time Integral 22.8 cm AV Area Cont Eq vti 2.2 cm AV Area Cont Eq pk 2.2 cm Mitral E Point Velocity 90.7 cm/s Mitral A Point Velocity 99.3 cm/s Mitral E to A Ratio 0.9 LV E' Lateral Velocity 8.5 cm/s Mitral E to LV E' Lateral Ratio 10.7 LV E' Septal Velocity 10.1 cm/s Mitral E to LV E' Septal Ratio 9.0 TR Peak Velocity 303.0 cm/s TR Peak Gradient 36.7 mmHg PV Peak Velocity 92.5 cm/s PV Peak Gradient 3.4 mmHg FINDINGS LEFT VENTRICLE Normal left ventricular size. Mild concentric left ventricular hypertrophy. The left ventricular systolic function is grossly normal on limited imaging. RIGHT VENTRICLE Normal right ventricular size and systolic function. LEFT ATRIUM The left atrial size is normal. RIGHT ATRIUM The right atrial size is normal. ATRIAL SEPTUM The interatrial septum not well visualized. AORTA The aortic root and proximal ascending aorta are normal in size on limited imaging. MITRAL VALVE Structurally normal mitral valve. Trace mitral valve regurgitation. AORTIC VALVE The aortic valve is not well visualized. No aortic valve stenosis. TRICUSPID VALVE Structurally normal tricuspid valve. There is trace tricuspid valve regurgitation. PULMONARY VALVE The pulmonary valve is not well visualized. VESSELS The inferior vena cava was not well visualized. PERICARDIUM No pericardial effusion. Frank Murray MD (Electronically Signed) Final Date:03 February 2017 12:32
[2017-02-03] MEDS: ACETAMINOPHEN/HYDROcodone 325 MG/5 MG TAB PO PRN (14:21)
[2017-02-03] MEDS: HEPARIN SODIUM - SQ 10,000 UNITS/ML VIAL SQ SCH (20:43)
[2017-02-04] VITALS (19 sets, daily range): BP systolic 98–144; BP diastolic 50–77; PULSE 50–90; RESP 7–21; TEMP 97.4–98.5; O2SAT 92–100
[2017-02-04] MEDS: RESP: ALBUTEROL 2.5 MG/IPRATROPIUM 0.5 MG NEB (SCH) INH ×6 (00:22→19:52)
[2017-02-04] MEDS: KETOROLAC TROMETHAMINE 30 MG/ML (IVP) VIAL IVP SCH ×2 (02:33→10:03)
[2017-02-04] MEDS: PROPOFOL 1000 MG/100 ML INJ 100 ML IV PRN (03:04)
[2017-02-04] MEDS: CHLORHEXIDINE GLUCONATE 2 % 1 PACK (2 CLOTHS) TOP SCH (03:44)
[2017-02-04 04:34] LABS: AUTOMATED NEUTROPHIL # 8.5 TH/MM3 (1.8-7.7); BASOPHIL % 0.3 % (0.0-2.0); EOSINOPHIL % 0.4 % (0.0-4.0); HEMATOCRIT 38.6 % (39.0-51.0); LYMPH % 13.8 % (9.0-44.0); LYMPHOCYTE # 1.6 TH/MM3 (1.0-4.8); MEAN CELL VOLUME 85.1 FL (80.0-100.0); MEAN CORPUSCULAR HEMOGLOBIN 28.6 PG (27.0-34.0); MEAN CORPUSCULAR HGB CONC 33.6 % (32.0-36.0); MONO % 10.1 % (0.0-8.0); NEUT % 75.4 % (16.0-70.0); PLATELET COUNT 176 TH/MM3 (150-450); RED BLOOD COUNT 4.54 MIL/MM3 (4.50-5.90); WHITE BLOOD COUNT 11.3 TH/MM3 (4.0-11.0)
[2017-02-04 04:35] LABS: BLOOD GAS BASE EXCESS 2.6 mmol/L (-2-2); BLOOD GAS CARBOXYHEMOGLOBIN 0.9 % (0-4); BLOOD GAS HCO3 27 mmol/L (22-26); BLOOD GAS METHEMOGLOBIN 0.8 % (0-2); BLOOD GAS O2 HGB SATURATION 93 % (90-100); BLOOD GAS OXYGEN CONTENT 17.4 Vol % (12.0-20.0); BLOOD GAS PCO2 47 mmHg (38-42); BLOOD GAS PO2 75 mmHg (61-120); BLOOD GAS TOTAL HGB 13.3 G/DL (12.0-16.0); CRITICAL VALUE NO; OXYGEN DEVICE VENTILATOR; TEMP CORR TO 98.6
[2017-02-04 04:36] LABS: DRAW SITE ART LINE; FIO2 40 %; STAT NO; ULNAR PULSE PRESENT; VENT SETTINGS PRVC/AC
[2017-02-04 04:47] LABS: HEMO FLAGS AUTO DIFF
[2017-02-04 04:48] LABS: MAGNESIUM 2.3 MG/DL (1.5-2.5); POTASSIUM 3.9 MEQ/L (3.5-5.1)
--- NOTE | 2017-02-04 05:34 | RADRPT ---
EXAM DATE/TIME: 02/04/2017 03:53 [facility] COMPARISON: CHEST SINGLE AP, February 03, 2017, 3:18. INDICATIONS : Respiratory failure, hypoxemia MEDICAL HISTORY : None. SURGICAL HISTORY : None. ENCOUNTER: Subsequent ACUITY: 2 days PAIN SCORE: Non-responsive. LOCATION: Bilateral chest FINDINGS: A single view of the chest demonstrates persistent left perihilar and left basilar air space processe s but I do believe that she'll some minimal infiltrate. This may be partially due to the limited insp iratory effort. Right lung remains clear. No effusions. Heart size is borderline. Endotracheal tube i s unchanged in position a nasogastric tube traversing the GE junction and extending off the inferior aspect of the image. CONCLUSION: 1. Left perihilar and medial left basilar airspace infiltrates may show some interval improvement fro m prior. Right lung remains clear. 2. Borderline prominent but well compensated heart. 3. Endotracheal tube remains appropriately positioned above the vira. Myron Price MD on February 04, 2017 at 5:31 Board Certified Radiologist. This report was verified electronically.
[2017-02-04] MEDS: D5-NS + KCL 20 MEQ INJ 1,000 ML IV SCH ×3 (05:43→19:54)
[2017-02-04] MEDS: RESP: BUDESONIDE 0.5 MG/2 ML NEB NEB SCH ×2 (08:07→19:52)
[2017-02-04 08:38] LABS: SCAN/DIFF AUTO DIFF CONFIRMED
[2017-02-04] MEDS: ARTIFICIAL TEARS OPTH SOLN 15 ML BTL EACH EYE SCH ×3 (09:00→17:37)
[2017-02-04] MEDS: SODIUM CHLORIDE 0.9% FLUSH 5 ML FLUSH IVF SCH ×2 (09:00→19:54)
--- NOTE | 2017-02-04 09:36 | HHI.CCPN ---
Subjective Remarks/Hospital Course 48-year-old male. Date of admission 02/02/2017. Date of consultation 02/03/2017. Past meclizine includes elevated BMI, anemia, hypertension, ongoing tobaccoism/alcohol use and gastroesophageal reflux disease. Patient is currently orotracheally intubated and no family is available. Information was obtained by reviewing paper chart. Patient is a known history of daily alcohol use and tobacco use. On 01/29, patient had a possible colonoscopy which revealed superficial lung mass FEN at the cecum with multiple biopsies, 2 sessile polyps in the transverse colon and sigmoid colon/polypectomy into colon. In the Descending Colon and Sigmoid Colon. Mild Diverticulosis. Grade 1 Internal Hemorrhoids. These Revealed Tubular Villous Adenoma the Cecum, Tubular Adenoma the Descending Colon with Hyperplastic Polyp. EGD revealed\ hyperplastic squamous mucosa and esophagus with Gastrografin and full inflammation. H. pylori negative. Patient presented to Dr. Goss for minimally invasive robot-assisted ascending colectomy with possible conversion to open surgery if needed. 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 Received 5 L crystalloid. EBL 200 cc. 300 cc urine output. Patient required Rohit-Synephrine drip throughout the case. Unable to be extubated postoperatively remained hypoxic. We are asked to evaluate post procedure. 02/03: Oxygen diffusion much impaired - may simply be shunting through dense infiltrates. Urine cloudy, send UA. Well perfused. 02/04: Much improved oxygenation. Renal function back to normal. Will try to extubate today. Objective Vital Signs Date Time Temp Pulse Resp B/P (MAP) Pulse Ox O2 Delivery O2 Flow Rate FiO2 02/04/17 08:07 98 35 02/04/17 06:00 55 02/04/17 04:00 98.4 18 112/75 (87) 140/76 (97) 02/03/17 19:00 Mechanical Ventilator Intake and Output 02/04/17 02/04/17 02/05/17 08:00 16:00 00:00 Intake Total 1100 ml Output Total 575 ml Balance 525 ml Result Diagram: 02/04/17 0402 02/04/17 0402 Other Results Laboratory Tests Test 02/03/17 10:47 02/04/17 04:19 Blood Gas Puncture Site ART LINE ART LINE Blood Gas Patient Temperature 98.6 98.6 Blood Gas HCO3 25 mmol/L (22-26) 27 mmol/L (22-26) Blood Gas Base Excess 0.1 mmol/L (-2-2) 2.6 mmol/L (-2-2) Blood Gas Oxygen Saturation 92 % (90-100) 93 % (90-100) Arterial Blood pH 7.38 (7.380-7.420) 7.38 (7.380-7.420) Arterial Blood Partial Pressure CO2 42 mmHg (38-42) 47 mmHg (38-42) Arterial Blood Partial Pressure O2 70 mmHg (61-120) 75 mmHg (61-120) Arterial Blood Oxygen Content 18.4 Vol % (12.0-20.0) 17.4 Vol % (12.0-20.0) Arterial Blood Carboxyhemoglobin 0.9 % (0-4) 0.9 % (0-4) Arterial Blood Methemoglobin 0.9 % (0-2) 0.8 % (0-2) Blood Gas Hemoglobin 14.2 G/DL (12.0-16.0) 13.3 G/DL (12.0-16.0) Oxygen Delivery Device VENTILATOR VENTILATOR Blood Gas Ventilator Setting PRVC/AC PRVC/AC Blood Gas Inspired Oxygen 80 % 40 % Imaging Last Impressions Chest X-Ray 02/03/17 0000 Signed Impressions: Service Date/Time: Friday, February 03, 2017 03:18 - CONCLUSION: 1. Patchy bilateral air space disease, most prominent in the perihilar and medial basilar distribution. 2. Endotracheal tube appropriately positioned at the vira. 3. Borderline prominent but well compensated heart. Myron Price MD Objective Remarks GENERAL: This is a 48-year-old male. SKIN: Warm and dry. Chronic venous stasis bilateral lower extremities HEAD: Atraumatic. Normocephalic. EYES: Pupils equal and round around 2 mm bilaterally and reactive. No scleral icterus. No injection or drainage. ENT: No nasal bleeding or discharge. Mucous membranes pink and moist. NG tube in right nares NECK: Trachea midline. Orally intubated. CARDIOVASCULAR: Regular rate and rhythm. S1, S2. No S4. No murmur, no JVD. RESPIRATORY: Diminished breath sounds bases due to body habitus. No wheezing or rhonchi appreciated. Good juan m air movement. GASTROINTESTINAL: Abdomen obese. Nontender. Quiet, soft. MUSCULOSKELETAL: Extremities with trace pitting edema bilateral lower x-rays with chronic venous stasis NEUROLOGICAL: Movement in all 4 extremities spontaneously and to stimulation. Positive gag. A/P Assessment and Plan Neuro/Psych: EtOH Thiamine, folate and multivitamin daily 3 days. Monitor for DTs Currently on propofol/fentanyl drips for sedation/analgesia while intubated Goal of RA SS -2 Daily sedation vacation Morphine LICENSED EMBALMER/D[place] written per colon surgery prior to knowledge patient remained intubated postop. Likely can discontinue until clinically indicated CV: Hypotension possibly sedation induced History of hypertension Will hold lisinopril 40 mg by mouth daily and amlodipine 5 mg by mouth daily for hypertension light of hypotension Currently on low-dose Rohit-Synephrine at 40 mg per minute. Likely can wean off. Currently on D5 normal saline with 20 mEq KCl 150 cc an hour Resp: Postoperative respiratory failure Ongoing tobaccoism PRVC 16/650/1.2/8/80 Ventilator bundle Albuterol/ipratropium aerosols every 4 hours with albuterol aerosols every 2 hours. 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 Right NG tube LIWS Pantoprazole for GI prophylaxis : Dewitt catheter for accurate I's and O's in a critically ill patient Endo: Hyperglycemia Sliding-scale insulin to maintain euglycemia per colorectal surgery Renal: Elevated creatinine Unknown baseline. No prior laboratories. Avoid nephrotoxic drugs Heme: Leukocytosis Monitor CBC daily. Follow trends. ID: Postoperative antibiotics with cefazolin and metronidazole per colorectal surgery. FEN: Replace electrolytes as clinically indicated per ICU electrolyte protocol MSK: Access- right radial arterial line placed in OR. Peripheral IVs. The central line if indicated Prophylaxis - GI - famotidine - DVT - SCD/pharmacological prophylaxis heparin sq Overall impression: Appears to have an element of chronic heart failure and deep venous insufficiency. Areas of consolidation on CXR has re-expanded on ventilator, minor atelectasis persists. Will try to extubate. Joselito Diaz MD Feb 04, 2017 09:36
[2017-02-04] MEDS: PANTOPRAZOLE SODIUM 40 MG VIAL IVP SCH (10:02)
[2017-02-04] MEDS: FOLIC ACID 1 MG TAB PO SCH (10:02)
[2017-02-04] MEDS: DOCUSATE SODIUM 50 MG/SENNA 8.6 MG TAB PO SCH ×2 (10:02→19:55)
[2017-02-04] MEDS: HEPARIN SODIUM - SQ 10,000 UNITS/ML VIAL SQ SCH ×2 (10:02→19:54)
[2017-02-04] MEDS: THIAMINE INJ 100 MG in SODIUM CHLORIDE 0.9% INJ 100 ML IV SCH (10:02)
[2017-02-04] MEDS: CHLORHEXIDINE 0.12% (ORAL KIT) 15 ML CUP MT SCH ×2 (10:03→19:54)
[2017-02-04] MEDS: MULTIVITAMIN TAB PO SCH (10:03)
[2017-02-04] MEDS ORDERED: FUROSEMIDE 20 MG/2 ML VIAL IV PUSH ONE (11:00)
--- NOTE | 2017-02-04 11:00 | HHI.PR ---
Subjective Remarks Pt more awake. Remains on vent. Appreciate critical care help. I&Os do not appear accurate as BUN/CR going down with little U/O and much less IVF ordered and running than recorded. Objective Vital Signs Date Time Temp Pulse Resp B/P (MAP) Pulse Ox O2 Delivery O2 Flow Rate FiO2 02/04/17 08:07 98 35 02/04/17 06:00 55 02/04/17 04:00 40 02/04/17 04:00 98.4 65 18 112/75 (87) 100 140/76 (97) 02/04/17 04:00 65 02/04/17 03:46 98 40 02/04/17 02:00 59 02/04/17 01:10 98 50 02/04/17 00:00 60 02/04/17 00:00 98.5 60 14 101/63 (76) 98 111/50 (70) 02/04/17 00:00 50 02/03/17 22:00 67 02/03/17 20:00 50 02/03/17 20:00 98.5 78 17 147/82 (103) 97 02/03/17 20:00 80 02/03/17 19:49 96 50 02/03/17 19:00 97 Mechanical Ventilator 50 02/03/17 18:00 70 02/03/17 17:16 98 50 02/03/17 16:00 98.5 70 16 110/72 (85) 99 02/03/17 16:00 70 02/03/17 15:00 78 02/03/17 14:00 90 02/03/17 12:00 78 02/03/17 12:00 78 16 115/68 (84) 98 I/O 02/03/17 02/03/17 02/03/17 02/04/17 02/04/17 02/04/17 07:00 15:00 23:00 07:00 15:00 23:00 Intake Total 5544 ml 501 ml 2250 ml Output Total 750 ml 575 ml Balance 4794 ml 501 ml 1675 ml Intake IV Total 5544 ml 501 ml 2250 ml Output Urine Total 450 ml 375 ml Gastric Drainage Total 100 ml 200 ml Estimated Blood Loss 200 ml # Bowel Movements 0 Result Diagram: 02/04/1740102/04/17401 Objective Remarks VS-S Abd: obese,soft,non distended. Labs-OK U/O-Does not look accurate Assessment and Plan Assessment and Plan POD#2. Remains on vent Continue IVs, Wean vent. Lasix 1 dose. Sean Meza MD Feb 04, 2017 11:00
[2017-02-04] MEDS ORDERED: LORazepam 2 MG/ML VIAL IV PUSH PRN (11:30)
[2017-02-04 15:42] LABS: BLOOD, URINE NEG (NEG); GLUCOSE,URINE NEG (NEG); HYALINE CAST, URINE 1 /lpf (RARE); KETONE, URINE NEG (NEG); MUCUS URINE FEW /lpf (OCC); NITRITE,URINE NEG (NEG); PH, URINE 5.5 (5.0-8.5); URINE COLOR YELLOW (YELLW/STRAW)
[2017-02-04 15:59] LABS: COMMENT (UR) CATH-CULT NOT IND; CULTURE IF INDICATED CATH CULTURE NOT IND
[2017-02-04] MEDS: ONDANSETRON HCL 4 MG/2 ML VIAL IV PRN (20:30)
[2017-02-04] MEDS: ACETAMINOPHEN/HYDROcodone 325 MG/5 MG TAB PO PRN (22:27)
[2017-02-05] VITALS (14 sets, daily range): BP systolic 116–147; BP diastolic 64–84; PULSE 70–90; RESP 12–14; TEMP 97.8–99.8; O2SAT 94–98
[2017-02-05] MEDS: RESP: ALBUTEROL 2.5 MG/IPRATROPIUM 0.5 MG NEB (SCH) INH ×6 (00:30→20:59)
[2017-02-05] MEDS: CHLORHEXIDINE GLUCONATE 2 % 1 PACK (2 CLOTHS) TOP SCH (00:32)
[2017-02-05] MEDS: ACETAMINOPHEN/HYDROcodone 325 MG/5 MG TAB PO PRN ×3 (04:38→20:03)
[2017-02-05] MEDS: D5-NS + KCL 20 MEQ INJ 1,000 ML IV SCH (04:49)
--- NOTE | 2017-02-05 05:07 | RADRPT ---
EXAM DATE/TIME: 02/05/2017 04:22 [facility] COMPARISON: CHEST SINGLE AP, February 04, 2017, 3:53. INDICATIONS : Evaluate for infiltrate MEDICAL HISTORY : None. SURGICAL HISTORY : None. ENCOUNTER: Subsequent ACUITY: 2 days PAIN SCORE: 7/10 LOCATION: Bilateral chest FINDINGS: A single portable frontal view of the chest shows some improvement in the area of consolidation withi n the left lung. Linear consolidation remains within the medial left base. Right lung is clear. No ef fusions. Heart is normal in size. CONCLUSION: Small area of residual linear consolidation within the medial left base. José Mcneal Jr., MD on February 05, 2017 at 5:04 Board Certified Radiologist. This report was verified electronically.
[2017-02-05 05:50] LABS: AUTOMATED NEUTROPHIL # 6.2 TH/MM3 (1.8-7.7); BASOPHIL % 0.2 % (0.0-2.0); EOSINOPHIL # 0.2 TH/MM3 (0-0.4); EOSINOPHIL % 2.8 % (0.0-4.0); HEMATOCRIT 39.7 % (39.0-51.0); LYMPH % 17.1 % (9.0-44.0); LYMPHOCYTE # 1.5 TH/MM3 (1.0-4.8); MEAN CELL VOLUME 87.1 FL (80.0-100.0); MEAN CORPUSCULAR HEMOGLOBIN 28.4 PG (27.0-34.0); MEAN CORPUSCULAR HGB CONC 32.7 % (32.0-36.0); MONO % 9.4 % (0.0-8.0); NEUT % 70.5 % (16.0-70.0); PLATELET COUNT 191 TH/MM3 (150-450); RED BLOOD COUNT 4.56 MIL/MM3 (4.50-5.90); RED CELL DISTRIBUTION WIDTH 21.3 % (11.6-17.2); WHITE BLOOD COUNT 8.8 TH/MM3 (4.0-11.0)
[2017-02-05 05:56] LABS: HEMO FLAGS AUTO DIFF
[2017-02-05] MEDS: ONDANSETRON HCL 4 MG/2 ML VIAL IV PRN (06:05)
[2017-02-05 06:14] LABS: BICARBONATE 27.8 MEQ/L (21.0-32.0); POTASSIUM 3.7 MEQ/L (3.5-5.1)
[2017-02-05 07:09] LABS: OVALOCYTES 1+ (NORMAL); PLATELET ESTIMATE SMEAR NORMAL (NORMAL); PLATELET MORPHOLOGY NORMAL (NORMAL); SCAN/DIFF AUTO DIFF CONFIRMED
[2017-02-05] MEDS: RESP: BUDESONIDE 0.5 MG/2 ML NEB NEB SCH ×2 (07:49→20:59)
[2017-02-05] MEDS: CHLORHEXIDINE 0.12% (ORAL KIT) 15 ML CUP MT SCH ×2 (07:55→20:00)
[2017-02-05] MEDS: DOCUSATE SODIUM 50 MG/SENNA 8.6 MG TAB PO SCH (08:17)
[2017-02-05] MEDS: ARTIFICIAL TEARS OPTH SOLN 15 ML BTL EACH EYE SCH ×3 (08:27→18:00)
[2017-02-05] MEDS: FOLIC ACID 1 MG TAB PO SCH (08:27)
[2017-02-05] MEDS: THIAMINE INJ 100 MG in SODIUM CHLORIDE 0.9% INJ 100 ML IV SCH (08:28)
[2017-02-05] MEDS: PANTOPRAZOLE SODIUM 40 MG VIAL IVP SCH (08:28)
[2017-02-05] MEDS: HEPARIN SODIUM - SQ 10,000 UNITS/ML VIAL SQ SCH ×2 (08:28→20:01)
[2017-02-05] MEDS: SODIUM CHLORIDE 0.9% FLUSH 5 ML FLUSH IVF SCH ×2 (08:29→20:03)
--- NOTE | 2017-02-05 09:09 | HHI.CCPN ---
Subjective Remarks/Hospital Course 48-year-old male. Date of admission 02/02/2017. Date of consultation 02/03/2017. Past meclizine includes elevated BMI, anemia, hypertension, ongoing tobaccoism/alcohol use and gastroesophageal reflux disease. Patient is currently orotracheally intubated and no family is available. Information was obtained by reviewing paper chart. Patient is a known history of daily alcohol use and tobacco use. On 01/29, patient had a possible colonoscopy which revealed superficial lung mass FEN at the cecum with multiple biopsies, 2 sessile polyps in the transverse colon and sigmoid colon/polypectomy into colon. In the Descending Colon and Sigmoid Colon. Mild Diverticulosis. Grade 1 Internal Hemorrhoids. These Revealed Tubular Villous Adenoma the Cecum, Tubular Adenoma the Descending Colon with Hyperplastic Polyp. EGD revealed\\ hyperplastic squamous mucosa and esophagus with Gastrografin and full inflammation. H. pylori negative. Patient presented to Dr. Goss for minimally invasive robot-assisted ascending colectomy with possible conversion to open surgery if needed. 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 Received 5 L crystalloid. EBL 200 cc. 300 cc urine output. Patient required Rohit-Synephrine drip throughout the case. Unable to be extubated postoperatively remained hypoxic. We are asked to evaluate post procedure. 02/03: Oxygen diffusion much impaired - may simply be shunting through dense infiltrates. Urine cloudy, send UA. Well perfused. 02/04: Much improved oxygenation. Renal function back to normal. Will try to extubate today. 02/05: extubated and improving. 2L o2 by NC. tolerating clear liquid diet. - flatus, but starting to feel "rumbling". was OOB to bedside commode today. denies complaints. ROS negative. Objective Vital Signs Date Time Temp Pulse Resp B/P (MAP) Pulse Ox O2 Delivery O2 Flow Rate FiO2 02/05/17 07:53 97 Nasal Cannula 3.00 02/05/17 06:00 75 02/05/17 04:00 98.1 13 124/70 (88) 02/04/17 12:00 40 Intake and Output 02/05/17 02/05/17 02/06/17 08:00 16:00 00:00 Intake Total 2200 ml Output Total 560 ml Balance 1640 ml Result Diagram: 02/05/17 0439 02/05/17 0439 Imaging Last Impressions Chest X-Ray 02/03/17 0000 Signed Impressions: Service Date/Time: Friday, February 03, 2017 03:18 - CONCLUSION: 1. Patchy bilateral air space disease, most prominent in the perihilar and medial basilar distribution. 2. Endotracheal tube appropriately positioned at the vira. 3. Borderline prominent but well compensated heart. Myron Price MD Objective Remarks GENERAL: This is a 48-year-old male. SKIN: Warm and dry. Chronic venous stasis bilateral lower extremities HEAD: Atraumatic. Normocephalic. EYES: Pupils equal and round around 2 mm bilaterally and reactive. No scleral icterus. No injection or drainage. ENT: No nasal bleeding or discharge. Mucous membranes pink and moist. NG tube in right nares NECK: Trachea midline. nc o2. CARDIOVASCULAR: Regular rate and rhythm. RESPIRATORY: unlabored. equal chest rise GASTROINTESTINAL: Abdomen obese. Nontender. soft. MUSCULOSKELETAL: Extremities with trace pitting edema bilateral lower extremities with chronic venous stasis NEUROLOGICAL: fc x 4. A/P Assessment and Plan Neuro/Psych: EtOH Thiamine, folate and multivitamin daily 3 days. Monitor for DTs pain management per surgeon. CV: Hypotension possibly sedation induced History of hypertension Will hold lisinopril 40 mg by mouth daily and amlodipine 5 mg by mouth daily for hypertension light of hypotension saline lock ivf. Resp: Postoperative respiratory failure Ongoing tobaccoism wean o2 by nc for spo2 > 92%,. Ventilator bundle prn nebs. 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 diet per surgeon. change to po pepcid for ppx. : d/c gutierrez. Endo: Hyperglycemia Sliding-scale insulin to maintain euglycemia per colorectal surgery Renal: Elevated creatinine Unknown baseline. No prior laboratories. Avoid nephrotoxic drugs Heme: Leukocytosis Monitor CBC daily. Follow trends. ID: s/p periop abx. FEN: Replace electrolytes as clinically indicated per ICU electrolyte protocol MSK: Access- - piv. Prophylaxis - GI - famotidine - DVT - SCD/pharmacological prophylaxis heparin sq Overall impression: Clinically improving. add lasix today to achieve negative fluid balance. oob and ambulating. diet and pain control per surgeon. watch today in ICU and transfer late today or tomorrow out of ICU. William Titus MD Feb 05, 2017 09:09
[2017-02-05] MEDS ORDERED: FUROSEMIDE 20 MG/2 ML VIAL IV PUSH ONE (09:15)
--- NOTE | 2017-02-05 15:57 | HHI.PR ---
Subjective Remarks POD#3 s/p robotic ascending colectomy comfortable, no sob Objective Vital Signs Date Time Temp Pulse Resp B/P (MAP) Pulse Ox O2 Delivery O2 Flow Rate FiO2 02/05/17 12:00 98.8 74 13 129/74 (92) 97 02/05/17 12:00 74 02/05/17 10:00 74 02/05/17 08:00 98.2 90 12 116/64 (81) 98 02/05/17 08:00 87 02/05/17 07:53 97 Nasal Cannula 3.00 02/05/17 07:00 97 Nasal Cannula 3.00 02/05/17 06:00 75 02/05/17 04:00 90 02/05/17 04:00 98.1 90 13 124/70 (88) 97 02/05/17 02:00 76 02/05/17 00:00 97.8 77 13 119/67 (84) 95 02/05/17 00:00 77 02/04/17 22:00 84 02/04/17 20:00 90 02/04/17 20:00 98.0 90 14 141/74 (96) 98 02/04/17 19:57 92 Nasal Cannula 4.00 02/04/17 19:00 95 Nasal Cannula 4.00 02/04/17 18:00 68 02/04/17 16:00 72 02/04/17 16:00 98.2 72 16 129/72 (91) 95 Arterial Line I/O 02/04/17 02/04/17 02/04/17 02/05/17 02/05/17 02/05/17 07:00 15:00 23:00 07:00 15:00 23:00 Intake Total 2250 ml 56 ml 1142.6 ml 2200 ml 388 ml Output Total 575 ml 1200 ml 560 ml Balance 1675 ml 56 ml -57.4 ml 1640 ml 388 ml Intake Oral 1200 ml IV Total 2250 ml 56 ml 1142.6 ml 1000 ml 388 ml Output Urine Total 375 ml 1200 ml 560 ml Gastric Drainage Total 200 ml # Bowel Movements 0 0 0 Result Diagram: 02/05/1743802/05/17438 Objective Remarks Abdomen soft, mild distension, tender wounds clean Assessment and Plan Assessment and Plan PT for mobilization Advance diet Pulmonary toilet Alicia Goss MD Feb 05, 2017 15:57
--- NOTE | 2017-02-05 16:24 | MP ---
cc: LILIAN GOSS M.D., JEFFREY DATE OF SURGERY: February 02, 2017 PREOPERATIVE DIAGNOSIS Cecal mass. POSTOPERATIVE DIAGNOSIS Cecal mass. PROCEDURE Robotic ascending colectomy. SURGEON Lilian Goss MD FORENSIC PATHOLOGIST Julien. ANESTHESIA General per ET tube. ESTIMATED BLOOD LOSS 100 ccs. OPERATIVE INDICATIONS The patient is a 56-year-old male with a history of a cecal mass found on colonoscopy, which was suspicious for carcinoma but biopsies were positive for polyp with atypia. OPERATIVE COURSE The patient was brought to the operating room and placed in the supine position. After induction of general anesthesia, the skin of the anterior abdominal wall was prepped and draped in the usual sterile fashion. A site was chosen for the camera, being located 2 cm below the umbilicus. A 10/12 trocar was placed at this location under direct vision, using a laparoscope. CO2 insufflation was then undertaken. A brief abdominal survey was performed with nothing noted that would preclude the robotic approach. The remainder of the trocars were then placed as follows: A #1 trocar was placed in the left midclavicular line, fpc between the umbilicus and the costal margin, and the 5 assist port was placed an equal distance between the #1 and the camera port. The #2 port was placed in the left side of the proposed suprapubic incision, and a #3 port was placed just inside the right anterior superior iliac spine. The patient was hydroplaned just slightly with a slight lean towards the right. The omentum was then grasped and pulled up and over the anterior surface of the transverse colon. There was noted to be one small adhesion that was divided. The small bowel was quite difficult to control so we did end up putting a laparotomy sponge in the belly to retract the bowel. With this the small bowel was retracted up and to the right, and the cecum and terminal ileum were retracted up cephalad. The peritoneum was scored and dissection continued in this plane until the duodenum was clearly identified. This was then dissected free from the undersurface of the transverse mesocolon. Dissection continued laterally as far as we could continue with the retraction. Retraction was somewhat difficult due to the patient's fairly large body habitus but we were able to control it. The bowel was then reversed into its more normal orientation and a window was made around the ileocolic vessels. These were dissected up to the level of their takeoff from the superior mesenteric vessels. The artery and vein were then dissected free circumferentially, doubly clamped proximally, singly clamped distally, divided and ligated with Hem-o-dorian clips. Dissection then continued posteriorly, freeing up the posterior surface. The omentum was then grasped and pulled away from the transverse colon and dissection was continued in this plane until the lesser sac was entered. The omentum was cleared from the free edge of the transverse colon from the hepatic flexure over to midway between the umbilicus and the splenic flexure. The transverse colon was then retracted down and the middle colic vessels were identified. A window was then made in the mesentery, just to the right of the middle colic vessels, and the bowel was cleared of its mesentery, preparing for later anastomosis. The dissection continued up and around the hepatic flexure, freeing the hepatic flexure. The mesentery was then divided using the vessel sealer down to the level of the previous dissection. At this point the lateral peritoneal attachments of the ascending colon were dissected free, meeting our previous dissection and dissection was continued underneath until I had free mobility of the terminal ileum, ascending colon and proximal transverse colon. A site was chosen where the small bowel would come up nicely to the transverse colon, approximately 15 cm proximal to the ileocecal valve. The mesentery at this level was divided using the vessel sealer. The bowel was lined up along the proposed anastomosis, and three stay sutures were placed using 3-0 Silk suture, two proximally, and one distally. Enterotomies were then made proximal to the proposed anastomosis. One limb of the [place] endo stapler was placed down each limb of the bowel. This was closed along the antimesenteric border, fired, and removed, thus creating an enteroenterotomy. A reload of the stapler was then placed across the anastomosis, distal to the enterotomies but proximal to the main part of the anastomosis. This was closed, held for 30 seconds, fired and removed. A second load was necessary to transect the specimen. The specimen was then placed into a EndoCatch bag and the anastomosis was visualized and appeared pink and healthy with no tension. The mesentery was brought to lay down across the anastomosis. All dissection beds were examined. Hemostasis was obtained with electrocautery. The liver was then visualized and had no visible abnormalities and the robot was undocked. A 10 cm transverse incision was made in the suprapubic area. It was necessary to increase this to a 12 cm incision to retrieve the specimen. Electrocautery dissection was carried down to the fascia of the anterior abdominal wall, which was split the length of skin incision. The medial fibers of the rectus abdominis muscle were divided. The posterior fascia/peritoneum was then divided the length of the skin incision as well. The bag with the specimen in it was then attempted to be retrieved. It was necessary to open the bag and take the specimen out piecemeal. The specimen was then examined and a large cecal mass, consistent with either an extremely advanced polyp or early cancer was confirmed. The posterior fascia was closed in a running fashion using #1 PDS and the anterior fascia was closed in running fashion using #1 PDS. The wound was covered with a Tegaderm and CO2 insufflation was resumed. The 10/ 12 trocar sites were then closed using the crossbow closure device and 0 Vicryl suture. These were placed but not secured until the air was desufflated to the extent possible. The air was then desufflated to the extent possible. Sutures were secured. All wounds were copiously irrigated with warm normal saline. The skin at the suprapubic incision was closed in a running subcuticular fashion, using 3-0 Vicryl, and the trocar sites were closed in an interrupted subcuticular fashion ,using 3-0 Vicryl. Steri-Strips and sterile dressing was applied. All sponge, needle and instrument counts were correct and the patient was returned to the post anesthesia care unit in stable condition. MD OSVALDO Singleton/SANDER /2:29 AM /1:45 PM [facility]
[2017-02-05] MEDS: FAMOTIDINE 20 MG TAB PO SCH (20:01)
[2017-02-05] MEDS: NYSTATIN 100,000 U/GM PWD 15 GM BTL TOPICAL SCH (20:03)
[2017-02-06] VITALS (11 sets, daily range): BP systolic 125–157; BP diastolic 69–89; PULSE 71–102; RESP 12–25; TEMP 98.2–100.6; O2SAT 92–97
[2017-02-06] MEDS: CHLORHEXIDINE GLUCONATE 2 % 1 PACK (2 CLOTHS) TOP SCH (04:00)
[2017-02-06] MEDS: ACETAMINOPHEN 325 MG TAB PO PRN ×3 (04:05→18:35)
[2017-02-06] MEDS: ACETAMINOPHEN/HYDROcodone 325 MG/5 MG TAB PO PRN ×2 (04:09→22:21)
[2017-02-06] MEDS: RESP: ALBUTEROL 2.5 MG/IPRATROPIUM 0.5 MG NEB (SCH) INH ×7 (04:35→23:19)
[2017-02-06 05:47] LABS: AUTOMATED NEUTROPHIL # 5.4 TH/MM3 (1.8-7.7); BASOPHIL % 0.4 % (0.0-2.0); EOSINOPHIL # 0.5 TH/MM3 (0-0.4); EOSINOPHIL % 6.5 % (0.0-4.0); HEMATOCRIT 38.9 % (39.0-51.0); LYMPHOCYTE # 1.4 TH/MM3 (1.0-4.8); MEAN CELL VOLUME 86.2 FL (80.0-100.0); MEAN CORPUSCULAR HEMOGLOBIN 27.5 PG (27.0-34.0); MEAN CORPUSCULAR HGB CONC 31.9 % (32.0-36.0); MONO % 9.3 % (0.0-8.0); NEUT % 66.8 % (16.0-70.0); PLATELET COUNT 211 TH/MM3 (150-450); RED BLOOD COUNT 4.52 MIL/MM3 (4.50-5.90); RED CELL DISTRIBUTION WIDTH 20.2 % (11.6-17.2); WHITE BLOOD COUNT 8.1 TH/MM3 (4.0-11.0)
[2017-02-06 05:54] LABS: HEMO FLAGS AUTO DIFF
[2017-02-06 06:15] LABS: BICARBONATE 29.6 MEQ/L (21.0-32.0); POTASSIUM 3.6 MEQ/L (3.5-5.1)
[2017-02-06 07:05] LABS: OVALOCYTES 1+ (NORMAL); SCAN/DIFF AUTO DIFF CONFIRMED
--- NOTE | 2017-02-06 07:43 | HHI.CCPN ---
Subjective Remarks/Hospital Course 48-year-old male. Date of admission 02/02/2017. Date of consultation 02/03/2017. Past meclizine includes elevated BMI, anemia, hypertension, ongoing tobaccoism/alcohol use and gastroesophageal reflux disease. Patient is currently orotracheally intubated and no family is available. Information was obtained by reviewing paper chart. Patient is a known history of daily alcohol use and tobacco use. On 01/29, patient had a possible colonoscopy which revealed superficial lung mass FEN at the cecum with multiple biopsies, 2 sessile polyps in the transverse colon and sigmoid colon/polypectomy into colon. In the Descending Colon and Sigmoid Colon. Mild Diverticulosis. Grade 1 Internal Hemorrhoids. These Revealed Tubular Villous Adenoma the Cecum, Tubular Adenoma the Descending Colon with Hyperplastic Polyp. EGD revealed\\ hyperplastic squamous mucosa and esophagus with Gastrografin and full inflammation. H. pylori negative. Patient presented to Dr. Goss for minimally invasive robot-assisted ascending colectomy with possible conversion to open surgery if needed. 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 Received 5 L crystalloid. EBL 200 cc. 300 cc urine output. Patient required Rohit-Synephrine drip throughout the case. Unable to be extubated postoperatively remained hypoxic. We are asked to evaluate post procedure. 02/03: Oxygen diffusion much impaired - may simply be shunting through dense infiltrates. Urine cloudy, send UA. Well perfused. 02/04: Much improved oxygenation. Renal function back to normal. Will try to extubate today. 02/05: extubated and improving. 2L o2 by NC. tolerating clear liquid diet. - flatus, but starting to feel "rumbling". was OOB to bedside commode today. denies complaints. ROS negative. 02/06: passing flatus. no BM yet. continues to improve clinically. ROS negative. denies complaints. Objective Vital Signs Date Time Temp Pulse Resp B/P (MAP) Pulse Ox O2 Delivery O2 Flow Rate FiO2 02/06/17 06:00 76 02/06/17 05:09 14 02/06/17 04:00 98.3 125/75 (92) 96 02/05/17 20:59 Nasal Cannula 3.00 02/04/17 12:00 40 Intake and Output 02/06/17 02/06/17 02/07/17 08:00 16:00 00:00 Intake Total 1440 ml Balance 1440 ml Result Diagram: 02/06/17 0415 02/06/17 0415 Imaging Last Impressions Chest X-Ray 02/03/17 0000 Signed Impressions: Service Date/Time: Friday, February 03, 2017 03:18 - CONCLUSION: 1. Patchy bilateral air space disease, most prominent in the perihilar and medial basilar distribution. 2. Endotracheal tube appropriately positioned at the vira. 3. Borderline prominent but well compensated heart. Myron Price MD Objective Remarks GENERAL: This is a 48-year-old male. SKIN: Warm and dry. Chronic venous stasis bilateral lower extremities HEAD: Atraumatic. Normocephalic. EYES: Pupils equal and round around 2 mm bilaterally and reactive. No scleral icterus. No injection or drainage. ENT: No nasal bleeding or discharge. Mucous membranes pink and moist. NG tube in right nares NECK: Trachea midline. nc o2. CARDIOVASCULAR: Regular rate and rhythm. RESPIRATORY: unlabored. equal chest rise GASTROINTESTINAL: Abdomen obese. Nontender. soft. MUSCULOSKELETAL: Extremities with trace pitting edema bilateral lower extremities with chronic venous stasis NEUROLOGICAL: fc x 4. A/P Assessment and Plan Neuro/Psych: EtOH Thiamine, folate and multivitamin daily 3 days. Monitor for DTs pain management per surgeon. CV: Hypotension possibly sedation induced History of hypertension Will hold lisinopril 40 mg by mouth daily and amlodipine 5 mg by mouth daily for hypertension light of hypotension saline lock ivf. Resp: Postoperative respiratory failure Ongoing tobaccoism wean o2 by nc for spo2 > 92%,. Ventilator bundle prn nebs. To Pulmicort twice a day Tobacco sensation will be encouraged OOB and ambulating. 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 po pepcid for ppx. : voiding on own. Endo: Hyperglycemia Sliding-scale insulin to maintain euglycemia per colorectal surgery Renal: Elevated creatinine Unknown baseline. No prior laboratories. Avoid nephrotoxic drugs Heme: Leukocytosis Monitor CBC daily. Follow trends. ID: s/p periop abx. FEN: Replace electrolytes as clinically indicated per ICU electrolyte protocol MSK: Access- - piv. Prophylaxis - GI - famotidine - DVT - SCD/pharmacological prophylaxis heparin sq Overall impression: Clinically improving. stable for transfer to floor. critical care medicine will sign off. please re-consult as needed. William Titus MD Feb 06, 2017 07:43
[2017-02-06] MEDS: CHLORHEXIDINE 0.12% (ORAL KIT) 15 ML CUP MT SCH ×2 (08:00→20:00)
[2017-02-06] MEDS: REMOVE OLD PATCH T-DERMAL SCH (08:19)
[2017-02-06] MEDS: NICOTINE 21 MG/24 HR PATCH T-DERMAL SCH (08:19)
[2017-02-06] MEDS: BENZOCAINE 6 MG/MENTHOL 10 MG LOZENGE BUCCAL PRN ×4 (08:20→22:21)
[2017-02-06] MEDS: FOLIC ACID 1 MG TAB PO SCH (08:20)
[2017-02-06] MEDS: FAMOTIDINE 20 MG TAB PO SCH ×2 (08:20→20:45)
[2017-02-06] MEDS: SODIUM CHLORIDE 0.9% FLUSH 5 ML FLUSH IVF SCH ×2 (08:20→20:45)
[2017-02-06] MEDS: HEPARIN SODIUM - SQ 10,000 UNITS/ML VIAL SQ SCH ×2 (08:21→20:45)
[2017-02-06] MEDS: RESP: BUDESONIDE 0.5 MG/2 ML NEB NEB SCH ×2 (08:27→20:28)
[2017-02-06] MEDS: NYSTATIN 100,000 U/GM PWD 15 GM BTL TOPICAL SCH ×2 (08:37→20:45)
[2017-02-06] MEDS: ARTIFICIAL TEARS OPTH SOLN 15 ML BTL EACH EYE SCH ×3 (08:37→18:00)
--- NOTE | 2017-02-06 09:52 | HHI.PR ---
Subjective Remarks POD#4 s/p robotic ascending colectomy comfortable, no sob Objective Vital Signs Date Time Temp Pulse Resp B/P (MAP) Pulse Ox O2 Delivery O2 Flow Rate FiO2 02/06/17 08:30 96 21 02/06/17 08:00 98.2 80 18 148/79 (102) 93 02/06/17 08:00 93 Room Air 02/06/17 08:00 86 02/06/17 07:00 96 Nasal Cannula 3.00 02/06/17 06:00 76 02/06/17 05:09 14 02/06/17 04:00 80 02/06/17 04:00 98.3 85 15 125/75 (92) 96 02/06/17 02:00 71 02/06/17 00:00 99.0 71 12 143/69 (93) 97 02/06/17 00:00 71 02/05/17 22:00 87 02/05/17 20:59 96 Nasal Cannula 3.00 02/05/17 20:00 78 02/05/17 20:00 99.8 87 14 147/84 (105) 94 02/05/17 19:00 97 Nasal Cannula 3.00 02/05/17 18:00 82 02/05/17 16:00 98.3 74 14 132/83 (99) 95 02/05/17 16:00 74 02/05/17 14:00 70 02/05/17 12:00 98.8 74 13 129/74 (92) 97 02/05/17 12:00 74 02/05/17 10:00 74 I/O 02/05/17 02/05/17 02/05/17 02/06/17 02/06/17 02/06/17 07:00 15:00 23:00 07:00 15:00 23:00 Intake Total 2200 ml 388 ml 1200 ml 1440 ml Output Total 560 ml 125 ml Balance 1640 ml 388 ml 1075 ml 1440 ml Intake Oral 1200 ml 1200 ml 1440 ml IV Total 1000 ml 388 ml Output Urine Total 560 ml 125 ml # Voids 4 6 # Bowel Movements 0 0 0 Result Diagram: 02/06/17 0415 02/06/17 0415 Objective Remarks Abdomen soft, mild distension, tender wounds clean Assessment and Plan Assessment and Plan Advance diet Mobilize Transfer to Alicia Goss MD Feb 06, 2017 09:52
[2017-02-07] VITALS (7 sets, daily range): BP systolic 138–165; BP diastolic 84–98; PULSE 88–95; RESP 17–21; TEMP 96.1–98.8; O2SAT 92–95
[2017-02-07] MEDS: RESP: ALBUTEROL 2.5 MG/IPRATROPIUM 0.5 MG NEB (SCH) INH ×2 (03:33→07:50)
[2017-02-07] MEDS: CHLORHEXIDINE GLUCONATE 2 % 1 PACK (2 CLOTHS) TOP SCH ×2 (04:00→20:39)
[2017-02-07] MEDS: ACETAMINOPHEN 325 MG TAB PO PRN ×2 (05:37→11:56)
[2017-02-07] MEDS: CHLORHEXIDINE 0.12% (ORAL KIT) 15 ML CUP MT SCH ×2 (08:00→20:00)
[2017-02-07] MEDS: RESP: BUDESONIDE 0.5 MG/2 ML NEB NEB SCH ×2 (08:02→21:38)
--- NOTE | 2017-02-07 08:28 | HHI.PR ---
Subjective Remarks POD#5 s/p robotic ascending colectomy comfortable, no sob Objective Vital Signs Date Time Temp Pulse Resp B/P (MAP) Pulse Ox O2 Delivery O2 Flow Rate FiO2 02/07/17 08:00 96.1 88 17 157/88 (111) 94 02/07/17 07:50 92 21 02/07/17 00:31 Room Air 02/07/17 00:00 98.3 90 17 151/84 (106) 95 02/06/17 23:27 21 02/06/17 22:00 102 02/06/17 20:28 94 02/06/17 20:00 96 02/06/17 20:00 100.6 96 25 157/87 (110) 93 02/06/17 19:00 93 Room Air 02/06/17 16:00 86 02/06/17 16:00 98.7 86 14 153/88 (109) 92 02/06/17 13:37 16 02/06/17 12:00 94 02/06/17 12:00 98.3 94 20 132/89 (103) 92 02/06/17 08:30 96 21 I/O 02/06/17 02/06/17 02/06/17 02/07/17 02/07/17 02/07/17 07:00 15:00 23:00 07:00 15:00 23:00 Intake Total 1440 ml 1450 ml 240 ml Output Total 300 ml Balance 1440 ml 1450 ml -60 ml Intake Oral 1440 ml 1450 ml 240 ml Output Urine Total 300 ml # Voids 6 4 # Bowel Movements 0 0 Result Diagram: 02/06/17 0415 02/06/17 0415 Objective Remarks Abdomen soft, mild distension, tender wounds clean Assessment and Plan Assessment and Plan Off O2 Mobilize Lasix Home tomorrow Alicia Goss MD Feb 07, 2017 08:28
[2017-02-07] MEDS: FOLIC ACID 1 MG TAB PO SCH (08:34)
[2017-02-07] MEDS: HEPARIN SODIUM - SQ 10,000 UNITS/ML VIAL SQ SCH ×2 (08:34→20:38)
[2017-02-07] MEDS: FAMOTIDINE 20 MG TAB PO SCH ×2 (08:34→20:38)
[2017-02-07] MEDS: NICOTINE 21 MG/24 HR PATCH T-DERMAL SCH (08:35)
[2017-02-07] MEDS: NYSTATIN 100,000 U/GM PWD 15 GM BTL TOPICAL SCH ×2 (08:35→21:00)
[2017-02-07] MEDS: SODIUM CHLORIDE 0.9% FLUSH 5 ML FLUSH IVF SCH ×2 (08:35→20:39)
[2017-02-07] MEDS: REMOVE OLD PATCH T-DERMAL SCH (08:35)
[2017-02-07] MEDS: ARTIFICIAL TEARS OPTH SOLN 15 ML BTL EACH EYE SCH ×3 (08:36→18:00)
[2017-02-07] MEDS: FUROSEMIDE 20 MG TAB PO SCH ×2 (09:52→18:13)
[2017-02-07] MEDS: ACETAMINOPHEN/HYDROcodone 325 MG/5 MG TAB PO PRN (18:16)
[2017-02-08] MEDS: ACETAMINOPHEN/HYDROcodone 325 MG/5 MG TAB PO PRN ×3 (00:03→15:09)
[2017-02-08 00:39] VITALS: BP 140/90; PULSE 88; RESP 20; TEMP 97.3; O2SAT 97
[2017-02-08 05:24] LABS: STAT YES
[2017-02-08 08:00] VITALS: BP 148/84; PULSE 84; RESP 17; TEMP 96.9; O2SAT 95
[2017-02-08] MEDS: CHLORHEXIDINE 0.12% (ORAL KIT) 15 ML CUP MT SCH (08:00)
[2017-02-08] MEDS: RESP: BUDESONIDE 0.5 MG/2 ML NEB NEB SCH (08:45)
[2017-02-08] MEDS: REMOVE OLD PATCH T-DERMAL SCH (09:00)
[2017-02-08] MEDS: ARTIFICIAL TEARS OPTH SOLN 15 ML BTL EACH EYE SCH ×2 (09:00→11:13)
[2017-02-08] MEDS: HEPARIN SODIUM - SQ 10,000 UNITS/ML VIAL SQ SCH (09:08)
[2017-02-08] MEDS: FOLIC ACID 1 MG TAB PO SCH (09:11)
[2017-02-08] MEDS: SODIUM CHLORIDE 0.9% FLUSH 5 ML FLUSH IVF SCH (09:11)
[2017-02-08] MEDS: FUROSEMIDE 20 MG TAB PO SCH (09:12)
[2017-02-08] MEDS: FAMOTIDINE 20 MG TAB PO SCH (09:12)
[2017-02-08] MEDS: NYSTATIN 100,000 U/GM PWD 15 GM BTL TOPICAL SCH (09:14)
[2017-02-08] MEDS: NICOTINE 21 MG/24 HR PATCH T-DERMAL SCH (09:27)
[2017-02-08] MEDS ORDERED: HYDR-3516 PO (10:42)
--- NOTE | 2017-02-08 11:08 | HHI.PR ---
Subjective Remarks POD#6 s/p robotic ascending colectomy comfortable, cough Objective Vital Signs Date Time Temp Pulse Resp B/P (MAP) Pulse Ox O2 Delivery O2 Flow Rate FiO2 02/08/17 08:00 96.9 84 17 148/84 (105) 95 02/08/17 00:39 97.3 88 20 140/90 (107) 97 02/07/17 21:43 94 02/07/17 20:39 98.8 93 21 155/98 (117) 92 02/07/17 20:00 Room Air 02/07/17 16:00 97.5 93 18 165/95 (118) 93 02/07/17 12:00 97.9 95 17 138/89 (105) 93 I/O 02/07/17 02/07/17 02/07/17 02/08/17 02/08/17 02/08/17 06:59 14:59 22:59 06:59 14:59 22:59 Intake Total 240 ml 240 ml 480 ml Output Total 300 ml 600 ml Balance -60 ml -360 ml 480 ml Intake Oral 240 ml 240 ml 480 ml Output Urine Total 300 ml 600 ml # Voids 3 # Bowel Movements 0 Result Diagram: 02/06/17 0415 02/06/17 0415 Objective Remarks Abdomen soft, mild distension, tender wounds clean Assessment and Plan Assessment and Plan Home today Alicia Goss MD Feb 08, 2017 10:39
[2017-02-08 12:00] VITALS: BP 141/84; PULSE 81; RESP 17; TEMP 96.6; O2SAT 93
[2017-02-08] MEDS ORDERED: STERILE WATER FOR INJ IV ONE (15:52)
--- NOTE | 2017-03-03 17:08 | MD ---
cc: ALICIA GOSS M.D. ADMISSION DATE: 02/02/2017 DISCHARGE DATE: 02/08/2017 ADMISSION DIAGNOSIS 1. Cecal mass. 2. Hypertension. 3. Anemia. DISCHARGE DIAGNOSIS 1. Cecal mass. 2. Hypertension. 3. Anemia. PROCEDURE Robotic ascending colectomy. HOSPITAL COURSE The patient is a 56-year-old male who was admitted on February 02, 2017 after an outpatient bowel prep. He was taken to the operating room where he underwent the above noted procedures. Postoperatively, he was unable to be extubated and stayed on the ventilator over the 24-48 hours. He was weaned from the ventilator and he had gradual return of bowel and bladder function after that. He was discharged home on February 08, 2017 with instructions to follow-up with myself in the office. Final pathology was not available at the time of discharge. Alicia Goss MD KW/EO /2:23 AM /4:59 PM
== END 2017-02-08 15:53 | disposition home or self-care (01) | DRG 329 ==
LOC: HSDI 02-02 09:50 → HPAC 02-03 03:31 → N03B 02-03 04:43 → N07A 02-07 00:09
PROVIDERS: ADMIT Colon & Rectal Surgery; ATTEND Colon & Rectal Surgery
PROC: 8E0W4CZ Robotic Assisted Procedure of Trunk Region, Percutaneous Endoscopic Approach (ICD-10-PCS; 2017-02-02)
PROC: 5A1945Z Respiratory Ventilation, 24-96 Consecutive Hours (ICD-10-PCS; 2017-02-02)
PROC: 0DTK4ZZ Resection of Ascending Colon, Percutaneous Endoscopic Approach (ICD-10-PCS; principal; 2017-02-02 20:12)
DX: C18.0 Malignant neoplasm of cecum (principal); J95.821 Acute postprocedural respiratory failure; Z68.41 Body mass index [BMI] 40.0-44.9, adult; I95.9 Hypotension, unspecified; E66.01 Morbid (severe) obesity due to excess calories; D72.829 Elevated white blood cell count, unspecified; K21.9 Gastro-esophageal reflux disease without esophagitis; F17.210 Nicotine dependence, cigarettes, uncomplicated; R73.9 Hyperglycemia, unspecified; I10 Essential (primary) hypertension; R79.89 Other specified abnormal findings of blood chemistry
CPT/HCPCS: 71010; 80048; 81001; 82805; 83735; 83880; 84100; 85007; 85025; 85027; 86850; 86900; 86901; 87641; 88307; 88309; 88341; 88342; 93005; 93308; 94002; 94003; 94150; 94640; 94664; 94667; 94668; C9113; J0131; J0330; J0690; J1100; J1644; J1885; J1940; J2250; J2370; J2405; J3010; J3411; J3480; J7040; J7060; J7120; J7626